=== PATIENT | female | born 1955 | race African-American/Black ===

== ENCOUNTER → 2024-09-18 | Outpatient (CLI) | payer MEDICARE ==
--- NOTE | 2024-09-20 15:01 | MR ---
EXAMINATION TYPE: MR lumbar spine wo con DATE OF EXAM: 09/18/2024 10:50 AM COMPARISON: None. CLINICAL INDICATION: Female, 69 years old with history of M54.50 LUMBAR PAIN, M47.816, Lower back noreen n, abnormal Xray. TECHNIQUE: Multiplanar, multisequence images of the lumbar spine were acquired without IV contrast. FINDINGS: Vertebral body heights are preserved and alignment is maintained. 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 Superimposed mild degenerative disc disease with desiccated and minimally bulging discs lower lumbar spine. There is moderate to advanced hypertrophic facet arthropathy, right greater than left. Conus medullaris is normal. No focal disc herniation or significant spinal canal stenosis seen. Changes result in moderate bilateral neuroforaminal stenosis at L5-S1. No suspicious bone marrow replacement. No prevertebral or paravertebral soft tissue abnormalities see n. IMPRESSION: 1. 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 No large focal disc herniation or significant spinal canal stenosis. 2. Moderate bilateral neural foraminal stenoses at L5-S1. [facility], , 09/20/2024 2:58 PM
== END | disposition home or self-care (01) ==
LOC: RADMRIMAIN 10:03
PROVIDERS: ATTEND Orthopaedic Surgery
DX: M47.816 Spondylosis without myelopathy or radiculopathy, lumbar region (principal); M48.061 Spinal stenosis, lumbar region without neurogenic claudication; M51.360 Other intervertebral disc degeneration, lumbar region with discogenic back pain only; M99.73 Connective tissue and disc stenosis of intervertebral foramina of lumbar region; M99.74 Connective tissue and disc stenosis of intervertebral foramina of sacral region
CPT/HCPCS: 72148